=== PATIENT | male | born 1980 | race African-American/Black ===

== ENCOUNTER 2021-04-18 22:21 | Emergency (ER) | payer SELFPAY ==
[~2021-04-18] VITALS: Ht 172.7 cm; Wt 88.6 kg
[~2021-04-18 22:21] MED LIST: AMOXICILLIN500 MG OR; KEFLEX500 MG OR
[2021-04-18] MEDS ORDERED: GENTAMICIN SULF5 ML OU (23:06)
[2021-04-18 23:45] VITALS: BP 116/60
== END 2021-04-18 23:46 | disposition home or self-care (01) | DRG 918 ==
LOC: ED 22:21
DX: T54.2X1A Toxic effect of corrosive acids and acid-like substances, accidental (unintentional), initial encounter (principal); H10.213 Acute toxic conjunctivitis, bilateral; F17.290 Nicotine dependence, other tobacco product, uncomplicated; Y93.89 Activity, other specified; Y92.009 Unspecified place in unspecified non-institutional (private) residence as the place of occurrence of the external cause